=== PATIENT | female | born 1985 | race Two or more races ===

== ENCOUNTER 2017-10-01 12:02 | Emergency (ER) | payer OTHER ==
[~2017-10-01] VITALS: Ht 152.4 cm; Wt 68.0 kg
[~2017-10-01 12:02] MED LIST: SOLI10TA5 PO
[2017-10-01 12:15] VITALS: Ht 152.4 cm; Wt 68.0 kg
[2017-10-01] MEDS ORDERED: IBUPROFEN 800 MG TAB PO ONE (13:30)
--- NOTE | 2017-10-01 14:35 | ERD ---
ER Documentation Chief Complaint Chief Complaint MECHANICAL FALL YESTERDAY BACK PAIN HPI This is a 32-year-old female who presents the emergency department today complaining of left-sided back pain patient states that she was turning around yesterday while using her crutches at [employer] and she fell backwards. States she has a history of spina bifida. Denies any fevers or chills, dysuria. ROS All systems reviewed and are negative except as per history of present illness. Medications Home Meds Active Scripts Naproxen* (Naprosyn*) 500 Mg Tablet, 500 MG PO BID Y for PAIN AND/OR INFLAMMATION, #30 TAB Prov:VELMA SILVEIRA PA-C 10/01/17 Reported Medications Solifenacin* (Vesicare*) 10 Mg Tablet, 10 MG PO DAILY, TAB 04/13/15 Allergies Allergies: Coded Allergies: imipramine (Unverified Allergy, Unknown, RASH, SWELLING, 04/13/15) latex (Unverified Allergy, Unknown, RASH,SWELLING, 04/13/15) PMhx/Soc History of Surgery: Yes (SX FOR SPINA BIFIDA,RT HIP SX,BILAT FEET,PE TUBE, COLLAGEN INJECTION TO WESLEY) Anesthesia Reaction: Yes Hx Neurological Disorder: No Hx Respiratory Disorders: No Hx Cardiac Disorders: No Hx Psychiatric Problems: No Hx Miscellaneous Medical Probl: No Hx Alcohol Use: Yes Hx Substance Use: No Hx Tobacco Use: No Physical Exam Vitals Vital Signs Date Time Temp Pulse Resp B/P Pulse Ox O2 Delivery O2 Flow Rate FiO2 10/01/17 12:15 98.0 79 18 122/71 99 Physical Exam Const: sitting in wheelchair, NAD Head: Atraumatic Eyes: Normal Conjunctiva ENT: Normal External Ears, Nose and Mouth. Neck: Full range of motion..~ No meningismus. Resp: Clear to auscultation bilaterally Cardio: Regular rate and rhythm, no murmurs Abd: Soft, non tender, non distended. Normal bowel sounds Skin: Lumbar spine evidence of surgical scar. Back: Lumbar spine no midline tenderness. Left-sided paraspinal tenderness. Unable to assess range of motion secondary to patient's condition. Pulses 2+. Distal neurovascularly intact Ext: No cyanosis, or edema Neur: Awake and alert Psych: Normal Mood and Affect Results 24 hrs Laboratory Tests Test 10/01/17 14:43 Bedside Urine pH (LAB) 5.5 Bedside Urine Protein (LAB) Negative Bedside Urine Glucose (UA) Negative Bedside Urine Ketones (LAB) Negative Bedside Urine Blood Negative Bedside Urine Nitrite (LAB) Negative Bedside Urine Leukocyte Esterase (L Negative Current Medications Medications (Trade) Dose Ordered Sig/Angy Route PRN Reason Start Time Stop Time Status Last Admin Dose Admin Ibuprofen (Motrin) 800 mg ONCE ONCE PO 10/01/17 13:30 10/01/17 13:31 DC 10/01/17 13:37 DIAGNOSTIC IMAGING REPORT Patient: SANDRITA APPIAH : 1985 Age: 32 Sex: F MR #: [id number] DOS: 10/01/17 1320 Ordering MD: VELMA SILVEIRA PA-C Location: [facility] Room/Bed: PROCEDURE: XR Lumbar Spine. CLINICAL INDICATION: Trauma due to a fall. Back pain. TECHNIQUE: Three views. AP, lateral and cone-down lateral view of the lumbar spine were obtained. COMPARISON: No prior studies are available for comparison. FINDINGS: There is normal stature and alignment of the vertebrae. There is no fracture. There is no lytic or blastic lesion. The disk height is normal. There is a NUT GRINDER shunt catheter. There has been prior lower lumbar spine surgery. IMPRESSION: 1. NUT GRINDER shunt catheter. 2. Prior lower lumbar spine surgery. 3. No acute abnormality. RPTAT: QQ .Huan Nelson MD, MD Date Time Electronically viewed and signed by .Huan Nelson MD, MD on 10/01/2017 14:55 .R/ CC: VELMA SILVEIRA PA-C DIAGNOSTIC IMAGING REPORT Patient: SANDRITA APPIAH : 1985 Age: 32 Sex: F MR #: [id number] DOS: 10/01/17 0000 Ordering MD: VELMA SILVEIRA PA-C Location: [facility] Room/Bed: PROCEDURE: XR sacrum and coccyx . CLINICAL INDICATION: Fall; trauma. TECHNIQUE: AP and lateral views of the sacrum and coccyx were performed. COMPARISON: No prior studies are available for comparison. FINDINGS: There is a tubing artifact projecting in the lower mid abdomen secondary to a peritoneal shunt catheter. There is a spina bifida occulta at the present levels of L4, L5 and involving the upper half of the sacrum. Acute angulation of the lower sacrum is noted and is believed to be the result of a normal variant. There is fecal material in the sigmoid colon and rectal ampulla. IMPRESSION: 1. No acute bony fracture is identified. 2. 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 3. Peritoneal shunt catheter projecting in the mid lower abdomen near the level of L5. RPTAT:AAJJ Physician Adali Date Time Electronically viewed and signed by Daquan Roger Physician on 10/01/2017 15:03 JM/ CC: VELMA SILVEIRA PA-C Procedures/[facility] This a 32-year-old female presents emergency department today complaining of left-sided back pain after sustaining a mechanical fall yesterday while at [employer]. Patient has no midline tenderness on physical exam however she does have a large surgical scar given her history of spina bifida I did obtain images. UA is negative for infection or hematuria Per the radiology report images of the lumbar spine showed normal stature and alignment of the vertebrae. There is no fracture. There is a NUT GRINDER shunt catheter. There has been prior lower lumbar spine surgery. Images of the sacrum and coccyx no acute bony fracture identified. 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 There is acute angulation of the lower sacrum that is noted and believed to be the result of a normal variant. There is a peritoneal shunt catheter projecting in the mid lower abdomen near the level of L5. Symptoms at this time appear more musculoskeletal strain versus sprain versus contusion. She was given 800 Motrin here in the emergency department. She declined stronger pain medication. Pain improved. She is given a prescription for Naprosyn for home. She declined any muscle relaxants. At this time the patient is stable for discharge and outpatient management. Patient should follow up with their PCP in the next 1-2 days. They may return to the emergency department sooner for any persistent or worsening of symptoms. Patient understood and agreed with the plan. Departure Diagnosis: Primary Impression: Fall Encounter type: initial encounter Qualified Code: W19.XXXA - Fall, initial encounter Additional Impression: Injury of back Encounter type: initial encounter Qualified Code: S39.92XA - Injury of back , initial encounter Condition: VELMA Chiu PA-C Oct 01, 2017 14:35
--- NOTE | 2017-10-01 14:35 | ERD ---
ER Documentation Chief Complaint Chief Complaint MECHANICAL FALL YESTERDAY BACK PAIN HPI This is a 32-year-old female who presents the emergency department today complaining of left-sided back pain patient states that she was turning around yesterday while using her crutches at [employer] and she fell backwards. States she has a history of spina bifida. Denies any fevers or chills, dysuria. ROS All systems reviewed and are negative except as per history of present illness. Medications Home Meds Active Scripts Naproxen* (Naprosyn*) 500 Mg Tablet, 500 MG PO BID Y for PAIN AND/OR INFLAMMATION, #30 TAB Prov:VELMA SILVEIRA PA-C 10/01/17 Reported Medications Solifenacin* (Vesicare*) 10 Mg Tablet, 10 MG PO DAILY, TAB 04/13/15 Allergies Allergies: Coded Allergies: imipramine (Unverified Allergy, Unknown, RASH, SWELLING, 04/13/15) latex (Unverified Allergy, Unknown, RASH,SWELLING, 04/13/15) PMhx/Soc History of Surgery: Yes (SX FOR SPINA BIFIDA,RT HIP SX,BILAT FEET,PE TUBE, COLLAGEN INJECTION TO WESLEY) Anesthesia Reaction: Yes Hx Neurological Disorder: No Hx Respiratory Disorders: No Hx Cardiac Disorders: No Hx Psychiatric Problems: No Hx Miscellaneous Medical Probl: No Hx Alcohol Use: Yes Hx Substance Use: No Hx Tobacco Use: No Physical Exam Vitals Vital Signs Date Time Temp Pulse Resp B/P Pulse Ox O2 Delivery O2 Flow Rate FiO2 10/01/17 12:15 98.0 79 18 122/71 99 Physical Exam Const: sitting in wheelchair, NAD Head: Atraumatic Eyes: Normal Conjunctiva ENT: Normal External Ears, Nose and Mouth. Neck: Full range of motion..~ No meningismus. Resp: Clear to auscultation bilaterally Cardio: Regular rate and rhythm, no murmurs Abd: Soft, non tender, non distended. Normal bowel sounds Skin: Lumbar spine evidence of surgical scar. Back: Lumbar spine no midline tenderness. Left-sided paraspinal tenderness. Unable to assess range of motion secondary to patient's condition. Pulses 2+. Distal neurovascularly intact Ext: No cyanosis, or edema Neur: Awake and alert Psych: Normal Mood and Affect Results 24 hrs Laboratory Tests Test 10/01/17 14:43 Bedside Urine pH (LAB) 5.5 Bedside Urine Protein (LAB) Negative Bedside Urine Glucose (UA) Negative Bedside Urine Ketones (LAB) Negative Bedside Urine Blood Negative Bedside Urine Nitrite (LAB) Negative Bedside Urine Leukocyte Esterase (L Negative Current Medications Medications (Trade) Dose Ordered Sig/Angy Route PRN Reason Start Time Stop Time Status Last Admin Dose Admin Ibuprofen (Motrin) 800 mg ONCE ONCE PO 10/01/17 13:30 10/01/17 13:31 DC 10/01/17 13:37 DIAGNOSTIC IMAGING REPORT Patient: SANDRITA APPIAH : 1985 Age: 32 Sex: F MR #: [id number] DOS: 10/01/17 1320 Ordering MD: VELMA SILVEIRA PA-C Location: [facility]TE Room/Bed: PROCEDURE: XR Lumbar Spine. CLINICAL INDICATION: Trauma due to a fall. Back pain. TECHNIQUE: Three views. AP, lateral and cone-down lateral view of the lumbar spine were obtained. COMPARISON: No prior studies are available for comparison. FINDINGS: There is normal stature and alignment of the vertebrae. There is no fracture. There is no lytic or blastic lesion. The disk height is normal. There is a HOSPITALITY JOB TITLES shunt catheter. There has been prior lower lumbar spine surgery. IMPRESSION: 1. HOSPITALITY JOB TITLES shunt catheter. 2. Prior lower lumbar spine surgery. 3. No acute abnormality. RPTAT: QQ .Huan Nelson MD, MD Date Time Electronically viewed and signed by .Huan Nelson MD, MD on 10/01/2017 14:55 .R/ CC: VELMA SILVEIRA PA-C DIAGNOSTIC IMAGING REPORT Patient: SANDRITA APPIAH : 1985 Age: 32 Sex: F MR #: [id number] DOS: 10/01/17 0000 Ordering MD: VELMA SILVEIRA PA-C Location: [facility]TE Room/Bed: PROCEDURE: XR sacrum and coccyx . CLINICAL INDICATION: Fall; trauma. TECHNIQUE: AP and lateral views of the sacrum and coccyx were performed. COMPARISON: No prior studies are available for comparison. FINDINGS: There is a tubing artifact projecting in the lower mid abdomen secondary to a peritoneal shunt catheter. There is a spina bifida occulta at the present levels of L4, L5 and involving the upper half of the sacrum. Acute angulation of the lower sacrum is noted and is believed to be the result of a normal variant. There is fecal material in the sigmoid colon and rectal ampulla. IMPRESSION: 1. No acute bony fracture is identified. 2. 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 3. Peritoneal shunt catheter projecting in the mid lower abdomen near the level of L5. RPTAT:AAJJ Physician Adali Date Time Electronically viewed and signed by Daquan Roger Physician on 10/01/2017 15:03 JM/ CC: VELMA SILVEIRA PA-C Procedures/[facility] This a 32-year-old female presents emergency department today complaining of left-sided back pain after sustaining a mechanical fall yesterday while at [employer]. Patient has no midline tenderness on physical exam however she does have a large surgical scar given her history of spina bifida I did obtain images. UA is negative for infection or hematuria Per the radiology report images of the lumbar spine showed normal stature and alignment of the vertebrae. There is no fracture. There is a HOSPITALITY JOB TITLES shunt catheter. There has been prior lower lumbar spine surgery. Images of the sacrum and coccyx no acute bony fracture identified. 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 There is acute angulation of the lower sacrum that is noted and believed to be the result of a normal variant. There is a peritoneal shunt catheter projecting in the mid lower abdomen near the level of L5. Symptoms at this time appear more musculoskeletal strain versus sprain versus contusion. She was given 800 Motrin here in the emergency department. She declined stronger pain medication. Pain improved. She is given a prescription for Naprosyn for home. She declined any muscle relaxants. At this time the patient is stable for discharge and outpatient management. Patient should follow up with their PCP in the next 1-2 days. They may return to the emergency department sooner for any persistent or worsening of symptoms. Patient understood and agreed with the plan. Departure Diagnosis: Primary Impression: Fall Encounter type: initial encounter Qualified Code: W19.XXXA - Fall, initial encounter Additional Impression: Injury of back Encounter type: initial encounter Qualified Code: S39.92XA - Injury of back , initial encounter Condition: VELMA Chiu PA-C Oct 01, 2017 14:35
--- NOTE | 2017-10-01 14:35 | ERD ---
ER Documentation Chief Complaint Chief Complaint MECHANICAL FALL YESTERDAY BACK PAIN HPI This is a 32-year-old female who presents the emergency department today complaining of left-sided back pain patient states that she was turning around yesterday while using [place] cr[place] [employer] and she fell backwards. States she has a history of spina bifida. Denies any fevers or chills, dysuria. ROS All systems reviewed and are negative except as per history of present illness. Medications Home Meds Active Scripts Naproxen* (Naprosyn*) 500 Mg Tablet, 500 MG PO BID Y for PAIN AND/OR INFLAMMATION, #30 TAB Prov:VELMA SILVEIRA PA-C 10/01/17 Reported Medications Solifenacin* (Vesicare*) 10 Mg Tablet, 10 MG PO DAILY, TAB 04/13/15 Allergies Allergies: Coded Allergies: imipramine (Unverified Allergy, Unknown, RASH, SWELLING, 04/13/15) latex (Unverified Allergy, Unknown, RASH,SWELLING, 04/13/15) PMhx/Soc History of Surgery: Yes (SX FOR SPINA BIFIDA,RT HIP SX,BILAT FEET,PE TUBE, COLLAGEN INJECTION TO WESLEY) Anesthesia Reaction: Yes Hx Neurological Disorder: No Hx Respiratory Disorders: No Hx Cardiac Disorders: No Hx Psychiatric Problems: No Hx Miscellaneous Medical Probl: No Hx Alcohol Use: Yes Hx Substance Use: No Hx Tobacco Use: No Physical Exam Vitals Vital Signs Date Time Temp Pulse Resp B/P Pulse Ox O2 Delivery O2 Flow Rate FiO2 10/01/17 12:15 98.0 79 18 122/71 99 Physical Exam Const: sitting in wheelchair, NAD Head: Atraumatic Eyes: Normal Conjunctiva ENT: Normal External Ears, Nose and Mouth. Neck: Full range of motion..~ No meningismus. Resp: Clear to auscultation bilaterally Cardio: Regular rate and rhythm, no murmurs Abd: Soft, non tender, non distended. Normal bowel sounds Skin: Lumbar spine evidence of surgical scar. Back: Lumbar spine no midline tenderness. Left-sided paraspinal tenderness. Unable to assess range of motion secondary to patient's condition. Pulses 2+. Distal neurovascularly intact Ext: No cyanosis, or edema Neur: Awake and alert Psych: Normal Mood and Affect Results 24 hrs Laboratory Tests Test 10/01/17 14:43 Bedside Urine pH (LAB) 5.5 Bedside Urine Protein (LAB) Negative Bedside Urine Glucose (UA) Negative Bedside Urine Ketones (LAB) Negative Bedside Urine Blood Negative Bedside Urine Nitrite (LAB) Negative Bedside Urine Leukocyte Esterase (L Negative Current Medications Medications (Trade) Dose Ordered Sig/Angy Route PRN Reason Start Time Stop Time Status Last Admin Dose Admin Ibuprofen (Motrin) 800 mg ONCE ONCE PO 10/01/17 13:30 10/01/17 13:31 DC 10/01/17 13:37 DIAGNOSTIC IMAGING REPORT Patient: SANDRITA APPIAH : 1985 Age: 32 Sex: F MR #: [id number] DOS: 10/01/17 1320 Ordering MD: VELMA SILVEIRA PA-C Location: [facility]TE Room/Bed: PROCEDURE: XR Lumbar Spine. CLINICAL INDICATION: Trauma due to a fall. Back pain. TECHNIQUE: Three views. AP, lateral and cone-down lateral view of the lumbar spine were obtained. COMPARISON: No prior studies are available for comparison. FINDINGS: There is normal stature and alignment of the vertebrae. There is no fracture. There is no lytic or blastic lesion. The disk height is normal. There is a PICKING MACHINE OPERATOR shunt catheter. There has been prior lower lumbar spine surgery. IMPRESSION: 1. PICKING MACHINE OPERATOR shunt catheter. 2. Prior lower lumbar spine surgery. 3. No acute abnormality. RPTAT: QQ .Huan Nelson MD, MD Date Time Electronically viewed and signed by .Huan Nelson MD, MD on 10/01/2017 14:55 .R/ CC: VELMA SILVEIRA PA-C DIAGNOSTIC IMAGING REPORT Patient: SANDRITA APPIAH : 1985 Age: 32 Sex: F MR #: [id number] DOS: 10/01/17 0000 Ordering MD: VELMA SILVEIRA PA-C Location: [facility] Room/Bed: PROCEDURE: XR sacrum and coccyx . CLINICAL INDICATION: Fall; trauma. TECHNIQUE: AP and lateral views of the sacrum and coccyx were performed. COMPARISON: No prior studies are available for comparison. FINDINGS: There is a tubing artifact projecting in the lower mid abdomen secondary to a peritoneal shunt catheter. There is a spina bifida occulta at the present levels of L4, L5 and involving the upper half of the sacrum. Acute angulation of the lower sacrum is noted and is believed to be the result of a normal variant. There is fecal material in the sigmoid colon and rectal ampulla. IMPRESSION: 1. No acute bony fracture is identified. 2. 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 3. Peritoneal shunt catheter projecting in the mid lower abdomen near the level of L5. RPTAT:AAJJ Physician Adali Date Time Electronically viewed and signed by Daquan Roger Physician on 10/01/2017 15:03 JM/ CC: VELMA SILVEIRA PA-C Procedures/[facility] This a 32-year-old female presents emergency department today complaining of left-sided back pain after sustaining a mechanical fall yesterday while [place] [employer]. Patient has no midline tenderness on physical exam however she does have a large surgical scar given her history of spina bifida I did obtain images. UA is negative for infection or hematuria Per the radiology report images of the lumbar spine showed normal stature and alignment of the vertebrae. There is no fracture. There is a PICKING MACHINE OPERATOR shunt catheter. There has been prior lower lumbar spine surgery. Images of the sacrum and coccyx no acute bony fracture identified. 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 There is acute angulation of the lower sacrum that is noted and believed to be the result of a normal variant. There is a peritoneal shunt catheter projecting in the mid lower abdomen near the level of L5. Symptoms at this time appear more musculoskeletal strain versus sprain versus contusion. She was given 800 Motrin here in the emergency department. She declined stronger pain medication. Pain improved. She is given a prescription for Naprosyn for home. She declined any muscle relaxants. At this time the patient is stable for discharge and outpatient management. Patient should follow up with their PCP in the next 1-2 days. They may return to the emergency department sooner for any persistent or worsening of symptoms. Patient understood and agreed with the plan. Departure Diagnosis: Primary Impression: Fall Encounter type: initial encounter Qualified Code: W19.XXXA - Fall, initial encounter Additional Impression: Injury of back Encounter type: initial encounter Qualified Code: S39.92XA - Injury of back , initial encounter Condition: VELMA Chiu PA-C Oct 01, 2017 14:35
--- NOTE | 2017-10-01 14:55 | RADRPT ---
PROCEDURE: XR Lumbar Spine. CLINICAL INDICATION: Trauma due to a fall. Back pain. TECHNIQUE: Three views. AP, lateral and cone-down lateral view of the lumbar spine were obtained. COMPARISON: No prior studies are available for comparison. FINDINGS: There is normal stature and alignment of the vertebrae. There is no fracture. There is no lytic or blastic lesion. The disk height is normal. There is a BOOK SHELVER shunt catheter. There has been prior lower lumbar spine surgery. IMPRESSION: 1. BOOK SHELVER shunt catheter. 2. Prior lower lumbar spine surgery. 3. No acute abnormality. RPTAT: QQ .Huan Nelson MD, MD Date Time Electronically viewed and signed by .Huan Nelson MD, on 10/01/2017 14:55 .R/
--- NOTE | 2017-10-01 14:55 | RADRPT ---
PROCEDURE: XR Lumbar Spine. CLINICAL INDICATION: Trauma due to a fall. Back pain. TECHNIQUE: Three views. AP, lateral and cone-down lateral view of the lumbar spine were obtained. COMPARISON: No prior studies are available for comparison. FINDINGS: There is normal stature and alignment of the vertebrae. There is no fracture. There is no lytic or blastic lesion. The disk height is normal. There is a DRAW BENCH OPERATOR HELPER shunt catheter. There has been prior lower lumbar spine surgery. IMPRESSION: 1. DRAW BENCH OPERATOR HELPER shunt catheter. 2. Prior lower lumbar spine surgery. 3. No acute abnormality. RPTAT: QQ .Huan Nelson MD, MD Date Time Electronically viewed and signed by .Huan Nelson MD, on 10/01/2017 14:55 .R/
--- NOTE | 2017-10-01 14:55 | RADRPT ---
PROCEDURE: XR Lumbar Spine. CLINICAL INDICATION: Trauma due to a fall. Back pain. TECHNIQUE: Three views. AP, lateral and cone-down lateral view of the lumbar spine were obtained. COMPARISON: No prior studies are available for comparison. FINDINGS: There is normal stature and alignment of the vertebrae. There is no fracture. There is no lytic or blastic lesion. The disk height is normal. There is a FINNISH RUBBER shunt catheter. There has been prior lower lumbar spine surgery. IMPRESSION: 1. FINNISH RUBBER shunt catheter. 2. Prior lower lumbar spine surgery. 3. No acute abnormality. RPTAT: QQ .Huan Nelson MD, MD Date Time Electronically viewed and signed by .Huan Nelson MD, on 10/01/2017 14:55 .R/
--- NOTE | 2017-10-01 15:07 | RADRPT ---
PROCEDURE: XR sacrum and coccyx . CLINICAL INDICATION: Fall; trauma. TECHNIQUE: AP and lateral views of the sacrum and coccyx were performed. COMPARISON: No prior studies are available for comparison. FINDINGS: There is a tubing artifact projecting in the lower mid abdomen secondary to a peritoneal shunt k[address]. There is a spina bifida occulta at the present levels of L4, L5 and involving the upper half of the sacrum. Acute angulation of the lower sacrum is noted and is believed to be the result of a nor mal variant. There is fecal material in the sigmoid colon and rectal ampulla. IMPRESSION: 1. No acute bony fracture is identified. 2. 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 3. Peritoneal shunt catheter projecting in the mid lower abdomen near the level of L5. RPTAT:AAJJ Physician Adali Date Time Electronically viewed and signed by Daquan Roger Physician on 10/01/2017 15:03 JOHNNIE/
[2017-10-01] MEDS ORDERED: NAPR-260 PO (15:25)
[2017-10-01 15:33] VITALS: BP 132/78; PULSE 77; RESP 19; TEMP 98.3
== END 2017-10-01 15:34 | disposition home or self-care (01) ==
LOC: FTE 12:02
DX: S39.92XA Unspecified injury of lower back, initial encounter (principal); W18.39XA Other fall on same level, initial encounter; Y92.9 Unspecified place or not applicable; Z91.040 Latex allergy status
CPT/HCPCS: 72100; 72220; 81003; Z7502; Z7610

== ENCOUNTER 2019-05-03 17:38 | Emergency (ER) | payer OTHER ==
[~2019-05-03] VITALS: Ht 152.4 cm; Wt 65.0 kg
[~2019-05-03 17:38] MED LIST changes: +NAPR-985 PO; +SOLI10TA2 PO; -SOLI10TA5 PO
[2019-05-03 17:44] VITALS: Ht 152.4 cm; Wt 65.0 kg
[2019-05-03] MEDS ORDERED: ACETAMINOPHEN 500 MG TAB PO STA (18:07)
[2019-05-03] MEDS ORDERED: IBUP800T48 PO (19:06)
[2019-05-03] MEDS ORDERED: ACET325T33 PO (19:06)
[2019-05-03] MEDS ORDERED: CIPR500T4 PO (19:06)
[2019-05-03 19:25] VITALS: BP 109/72; PULSE 92; RESP 18
[2019-05-03] MEDS ORDERED: CEFTRIAXONE 1 GM INJ IM ONE (19:30)
[2019-05-03] MEDS ORDERED: LIDOCAINE 1% (MPF) 5 ML VIAL INJ ONE (19:30)
--- NOTE | 2019-05-03 23:06 | ERD ---
ER Documentation Chief Complaint Chief Complaint BILATERAL FLANK PAIN X 2 DAYS HPI 34-year-old female presenting with flank pain and dysuria. Patient has no hematuria. She developed a fever earlier today and has not taken medications for her symptoms. She states her urine is "bubbly". Patient has a history of spina bifida and hydrocephalus. She has an allergy to Ditropan. Surgical history of back leg and brain shunt. Social history denies. ROS All systems reviewed and are negative except as per history of present illness. Medications Home Meds Active Scripts Acetaminophen* (Tylenol*) 325 Mg Tablet, 2 TAB PO Q8 PRN for PAIN AND OR E LEVATED TEMP, #20 TAB Prov:SWATHI MUSA PA-C 05/03/19 Ibuprofen* (Motrin*) 800 Mg Tab, 800 MG PO Q6, #30 TAB Prov:SWATHI MUSA PA-C 05/03/19 Ciprofloxacin Hcl* (Ciprofloxacin Hcl*) 500 Mg Tablet, 500 MG PO BID for 10 Days, TAB Prov:SWATHI MUSA PA-C 05/03/19 Naproxen* (Naprosyn*) 500 Mg Tablet, 500 MG PO BID PRN for PAIN AND/OR INFLAMMATION, #30 TAB Prov:VELMA SILVEIRA PA-C 10/01/17 Reported Medications Solifenacin* (Vesicare*) 10 Mg Tablet, 10 MG PO DAILY, TAB 04/13/15 Allergies Allergies: Coded Allergies: imipramine (Unverified Allergy, Unknown, RASH, SWELLING, 04/13/15) latex (Unverified Allergy, Unknown, RASH,SWELLING, 04/13/15) PMhx/Soc History of Surgery: Yes (SX FOR SPINA BIFIDA,RT HIP SX,BILAT FEET,PE TUBE, COLLAGEN INJECTION TO [place]) Anesthesia Reaction: Yes Hx Neurological Disorder: No Hx Respiratory Disorders: No Hx Cardiac Disorders: No Hx Psychiatric Problems: No Hx Miscellaneous Medical Probl: Yes (spina bifida, hydrocephalus) Hx Alcohol Use: Yes Hx Substance Use: No Hx Tobacco Use: No Smoking Status: Never smoker FmHx Family History: No diabetes, No coronary disease, No other Physical Exam Vitals Vital Signs Date Temp Pulse Resp B/P (MAP) Pulse Ox O2 O2 Flow FiO2 Time Delivery Rate 05/03/19 99.0 92 18 109/72 100 Room Air 19:25 (84) 05/03/19 100.8 18:22 05/03/19 101.3 108 22 130/71 99 17:44 (90) Physical Exam GENERAL: The patient is well-appearing, well-nourished, in no acute distress HEENT: Atraumatic. Conjunctivae are pink. Pupils equal, round, and reactive to light. There is no scleral icterus. Tympanic membranes clear bilaterally. Oropharynx clear. CHEST: Clear to auscultation bilaterally. There are no rales, wheezes or rhonchi. HEART: Regular rate and rhythm. No murmurs, clicks, rubs or gallops. ABDOMEN:Soft, nontender and nondistended. Good bowel sounds. No rebound or guarding. No gross peritonitis. No gross organomegaly or masses. BACK: Tender to palpation to the right flank. Results 24 hrs Laboratory Tests Test 05/03/19 18:25 05/03/19 18:28 POC Beta HCG, Qualitative NEGATIVE Bedside Urine pH (LAB) 5.5 Bedside Urine Protein (LAB) 1+ Bedside Urine Glucose (UA) Negative Bedside Urine Ketones (LAB) Negative Bedside Urine Blood 2+ Bedside Urine Nitrite (LAB) Positive Bedside Urine Leukocyte Esterase (L 2+ Current Medications Medications Dose Sig/Angy Start Time Status Last (Trade) Ordered Route PRN Stop Time Admin Dose Reason Admin 1,000 mg ONCE STAT 05/03/19 DC 05/03/19 Acetaminophen PO 18:07 05/03/19 18:22 (Tylenol 18:08 Tab) Ceftriaxone 1 gm ONCE ONCE 05/03/19 DC 05/03/19 Sodium IM 19:30 05/03/19 19:15 (Rocephin) 19:31 Lidocaine 5 ml ONCE ONCE 05/03/19 DC 05/03/19 (Xylocaine INJ 19:30 05/03/19 19:15 1% (Mpf)) 19:31 Procedures/MDM ER course: Urinalysis positive for infection. Rocephin given in ED. Urine culture sent. MDM: 34-year-old female presenting with pyelonephritis. I have low suspicion for septic stone. Patient will be treated with antibiotics. I have low suspicion for sepsis. Patient's urine is sent for culture. Patient is told sym ptoms change or worsen to return immediately to the ER. I have low suspicion for acute abdominal emergency as patient's exam is non-concerning and patient is nontoxic-appearing. Patient is told symptoms change or worsen to follow-up with primary care and to the ER. All questions answered at discharge Departure Diagnosis: Primary Impression: Pyelonephritis Condition: Stable Patient Instructions: Pyelonephritis, Female (Adult) Referrals: [facility] YOU HAVE RECEIVED A MEDICAL SCREENING EXAM AND THE RESULTS INDICATE THAT YOU DO NOT HAVE A CONDITION THAT REQUIRES URGENT TREATMENT IN THE EMERGENCY DEPARTMENT. FURTHER EVALUATION AND TREATMENT OF YOUR CONDITION CAN WAIT UNTIL YOU ARE SEEN IN YOUR DOCTORS OFFICE WITHIN THE NEXT 1-2 DAYS. IT IS YOUR RESPONSIBILITY TO MAKE AN APPOINTMENT FOR FOLOW-UP CARE. IF YOU HAVE A PRIMARY DOCTOR --you should call your primary doctor and schedule an appointment IF YOU DO NOT HAVE A PRIMARY DOCTOR YOU CAN CALL OUR PHYSICIAN REFERRAL HOTLINE AT IF YOU CAN NOT AFFORD TO SEE A PHYSICIAN YOU CAN CHOSE FROM THE FOLLOWING [facility] [address] [facility] [address] [place] [facility] [facility] [email or web address] [address] [facility] [address] [facility] [address] [facility] [facility]. [address] Additional Instructions: FOLLOW UP WITH YOUR PRIMARY CARE PHYSICIAN TOMORROW.Return to this facility if you are not improving as expected. SWATHI MUSA PA-C May 03, 2019 23:06
== END 2019-05-03 19:30 | disposition home or self-care (01) ==
LOC: FTE 17:38
DX: N12 Tubulo-interstitial nephritis, not specified as acute or chronic (principal); Z91.040 Latex allergy status
CPT/HCPCS: 81003; 81025; 87086; 96372; J0696; Z7502; Z7610